=== PATIENT | male | born 1960 | race Two or more races ===

== ENCOUNTER 2023-02-15 12:05 | Emergency (ER) | payer OTHER ==
[~2023-02-15] VITALS: Ht 172.7 cm; Wt 73.0 kg
[2023-02-15] MEDS ORDERED: SODIUM CHLORIDE 0.9% 1000ML BAG (SEPSIS BOLUS) IV ONE (13:45)
[2023-02-15 13:51] LABS: CLARITY URINE TURBID (CLEAR); COLOR URINE YELLOW (YELLOW); KETONES URINE NEGATIVE (NEGATIVE); LEUKOCYTE ESTERASE URINE 2+ (NEGATIVE); NITRITE URINE NEGATIVE (NEGATIVE); OCCULT BLOOD URINE 2+ (NEGATIVE); PH URINE 5.5 (4.5-8.0); PROTEIN URINE TRACE (NEGATIVE); SPECIFIC GRAVITY URINE 1.009 (1.005-1.030); UROBILINOGEN URINE 0.2 E.U./dL (0.2-1.0)
[2023-02-15 13:59] LABS: BASOPHILS % 0.2 % (0.0-2.0); EOSINOPHILS % 0.3 % (0.0-5.0); HEMATOCRIT. 22.6 % (42.0-52.0); LYMPHOCYTES % 8.3 % (20.0-50.0); MEAN CORPUSCULAR HEMOGLOBIN 29.9 pg (28.0-32.0); MEAN CORPUSCULAR VOLUME 96.6 fL (80.0-94.0); MEAN PLATELET VOLUME 9.6 fl (7.4-10.4); MONOCYTES % 6.6 % (2.0-8.0); NEUTROPHILS % 84.6 % (40.0-76.0); PLATELET 192 x1000/uL (130-400); RED BLOOD CELL COUNT 2.34 mill/uL (4.7-6.1); RED CELL DISTRIBUTION WIDTH 15.1 % (11.6-14.6)
[2023-02-15 14:00] LABS: INR 1.2; PROTHROMBIN TIME 12.8 sec (9.6-11.0)
[2023-02-15 14:07] LABS: CHLORIDE 112 mEq/L (98-107)
[2023-02-15] MEDS ORDERED: PIPERACILLIN/TAZOBACTAM 3.375GM/50ML PREMIX IV ONE (14:30)
[2023-02-15] MEDS ORDERED: PIPERACILLIN/TAZ 3.375G PREMIX 50 ML IV NR (14:30)
[2023-02-15] MEDS ORDERED: LEVOFLOXACIN 250MG PREMIX 50 ML IV ONE (16:15)
[2023-02-15 18:00] VITALS: BP 133/62
== END 2023-02-15 18:29 | disposition short-term general hospital (02) ==
LOC: ER 12:33 → EDBD 12:33 → EDBEDREQ 13:46 → CANBEDREQ 16:13 → ER 18:29
DX: A41.9 Sepsis, unspecified organism (principal); R19.7 Diarrhea, unspecified; R42 Dizziness and giddiness; R55 Syncope and collapse; E11.9 Type 2 diabetes mellitus without complications; F17.210 Nicotine dependence, cigarettes, uncomplicated; Z20.822 Contact with and (suspected) exposure to COVID-19
CPT/HCPCS: 36415; 71045; 80053; 81003; 82962; 83605; 84145; 84484; 85025; 85610; 87040; 87086; 87426; 93005; 96361; 96365; 96366; 96368; 99291; C9803; J1956; J2543; J7030